=== PATIENT | male | born 1985 | race Caucasian/White ===

== ENCOUNTER 2022-04-22 21:10 | Emergency (ER) | payer OTHER ==
[~2022-04-22] VITALS: Ht 177.8 cm; Wt 55.7 kg
[2022-04-22] MEDS ORDERED: AZITHROMYCIN500 MG PO (23:00)
== END 2022-04-23 00:10 | disposition home or self-care (01) ==
LOC: ED 21:10
DX: S81.851A Open bite, right lower leg, initial encounter (principal); S91.051A Open bite, right ankle, initial encounter; W55.01XA Bitten by cat, initial encounter; Z23 Encounter for immunization
CPT/HCPCS: 90471; 90715; 99283-25